=== PATIENT | female | born 1940 | race Caucasian/White ===

== ENCOUNTER → 2022-12-07 10:18 | Outpatient (BNVA) | payer MEDICARE, SELFPAY | PROVIDERS: PCP Internal Medicine; Visit Provider Hospitalist | DX: J84.10 Pulmonary fibrosis, unspecified (principal); R91.8 Other nonspecific abnormal finding of lung field; R06.00 Dyspnea, unspecified; I77.819 Aortic ectasia, unspecified site; K44.9 Diaphragmatic hernia without obstruction or gangrene | CPT/HCPCS: 99202 ==

== ENCOUNTER 2023-04-04 10:35 | Outpatient (AMB) | payer MEDICARE, SELFPAY ==
--- NOTE | 2023-04-04 10:49 | MHC.OFFVIS ---
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 The patient is a lifelong nonsmoker although she was exposed to secondhand smoke as a child. The patient apparently started developing shortness of breath going up a flight of stairs. She was seen by her primary care doctor referred to Cardiology. There she had a cardiac stress test that was abnormal and therefore was referred to Cardiology where she did undergo a cardiac catheterization at [facility]. Her cardiac cath her report was normal and therefore the patient was then referred back to primary care doctor. Patient still complaining of dyspnea on exertion she underwent pulmonary function studies which I personally reviewed demonstrating no evidence of any obstructive nor restrictive ventilatory defects. Her diffusing capacity also within normal limits. Because of a family history of lung cancer and her ongoing symptoms the patient was sent for imaging studies including a CT scan of the chest which I personally reviewed. The patient had some very minimal amount of emphysematous changes in the upper lung zones. In addition to that the patient had an ectatic ascending aorta measuring 4.5 cm. The patient also had small pulmonary nodules which appear to be subsolid in nature primarily in the right larger was 1 measuring 5 mm in size. In addition to that the patient did have some pulmonary fibrotic changes primarily at the bases right more than left. And the subdiaphragmatic level the scarring becomes more round about is hard to know if that is nodule around 8 mm in size. Therefore, have the patient have a repeat CT scan in 6 months from her last ones post to a year. In addition to this the patient did go for 6 minutes walk test and her oxygenation actually dropped to about 90% during the ambulation. Heart rate was stable. 04/04/2023 the patient is here for a pulmonary follow-up visit. Overall the patient has been doing well. She continues to have some dyspnea on exertion but she is trying to stay active. She also has intermittent cough but not too significant. She did follow-up with Cardiology and her medications have been adjusted accordingly. She understands that she needs to continue to exercise to build up her exercise tolerance. The patient did undergo a repeat CT scan of the chest demonstrating stable pulmonary nodules. We will have to reassess the nodules for another year. No need for any additional testing at this time. If the patient develops any worsening symptoms we can always consider a cardiopulmonary exercise tolerance test or further testing to assess for exercise-induced pulmonary hypertension. But at this point I do not believe that this is necessary. FORMERLY [facility], [facility] Medical History (Updated 04/04/23 @ 12:57 by Reed Jamil MD) Pulmonary fibrosis Hiatal hernia Dyspnea Pulmonary nodules Aortic ectasia Social History (Updated 12/07/22 @ 10:35 by LAURA Gamboa) Patient Tobacco Use Status: Never used Tobacco Review of Systems Const Denies headache(s) Eyes Denies blurry vision ENT Denies headache(s) Card Denies chest pain and Reports dyspnea on exertion Resp Reports dyspnea on exertion and Denies wheezing GI Reports no additional complaints Musc Reports no additional complaints Skin/Breast Denies rash Neuro Reports no additional complaints and Denies headache(s) James/Lymph Denies easy bruising Aller/Immun Denies wheezing Physical Exam Vital Signs: Last Vital Signs Pulse 63 04/04/23 10:50 Pulse Ox 96 04/04/23 10:50 Oxygen Delivery Method Room Air 04/04/23 10:50 BMI result Body Mass Index 34.3 Const General: comfortable HEENT Head: Yes normocephalic Neck Neck: Yes supple Chest Chest palpation & inspection: normal inspection of the chest Resp Effort & Inspection: normal respiratory effort Auscultation: diminished lung sounds Cardio Rate: regular rate Rhythm: regular rhythm Heart sounds: S1 normal heart sound present and S2 normal heart sound present GI Palpation (GI): Soft to palpation Skin General skin exam: no rashes or lesions noted Extrem General: Yes no clubbing, cyanosis or edema Assessment & Plan Assessment & Plan (1) Pulmonary nodules: Code(s): R91.8 - Other nonspecific abnormal finding of lung field (2) Dyspnea: Code(s): R06.00 - Dyspnea, unspecified Qualifiers: Dyspnea type: dyspnea on exertion Qualified Code(s): R06.09 - Other forms of dyspnea (3) Hiatal hernia: Code(s): K44.9 - Diaphragmatic hernia without obstruction or gangrene (4) Pulmonary fibrosis: Comment: minimal, does not appear to be progressive Code(s): J84.10 - Pulmonary fibrosis, unspecified Plan Repeat CT chest in 1 year continue exercise regimen F/U in 1 year Orders: Orders CT chest wo IV con 364 Days R91.8 - Other nonspecific abnormal finding of lung field Coding Level of Care Code Est Pt Level 4 (68921) Diagnoses Pulmonary nodules R91.8 Dyspnea on exertion R06.09 Dyspnea type: dyspnea on exertion Hiatal hernia K44.9 Pulmonary fibrosis J84.10 Time Spent (min) 17
[2023-04-04 10:50] VITALS: PULSE 63; O2SAT 96; BMI 34.3
== END 2023-04-04 11:10 | disposition home or self-care (01) ==
PROVIDERS: PCP Internal Medicine; Visit Provider Hospitalist
DX: R91.8 Other nonspecific abnormal finding of lung field (principal); R06.09 Other forms of dyspnea; K44.9 Diaphragmatic hernia without obstruction or gangrene; J84.10 Pulmonary fibrosis, unspecified
CPT/HCPCS: 99214

== ENCOUNTER → 2023-04-04 10:35 | Outpatient (BNVA) | payer MEDICARE, SELFPAY | PROVIDERS: PCP Internal Medicine; Visit Provider Hospitalist | DX: R91.8 Other nonspecific abnormal finding of lung field (principal); R06.09 Other forms of dyspnea; J84.10 Pulmonary fibrosis, unspecified; K44.9 Diaphragmatic hernia without obstruction or gangrene | CPT/HCPCS: 99212 ==

== ENCOUNTER 2023-05-10 09:53 | Outpatient (AMB) | payer MEDICARE, SELFPAY ==
[2023-05-10 10:14] VITALS: BP 124/78; PULSE 61; O2SAT 97
--- NOTE | 2023-05-10 10:14 | MHC.OFFVIS ---
Intake Vital Signs 05/10/23 10:14 Weight 93 kg BP 124/78 Blood Pressure Location Lt brachial Position Sitting Pulse 61 Pulse Source Pulse Oximeter Pulse Oximetry (%) 97 Oxygen Delivery Method Room Air Intake Visit Reasons: 6MW Allergies No Known Allergies Allergy (Verified 05/10/23 10:14) Medication List - Last Reconciled 05/10/23 by Yuko Leslie LPN atenolol 25 mg PO DAILY cholecalciferol (vitamin D3) 25 mcg PO DAILY levothyroxine 0 mcg PO lorazepam 0.5 mg PO DAILY PRN nortriptyline 50 mg PO BEDTIME omeprazole 20 mg PO DAILY simvastatin 20 mg PO DAILY PFSH Medical History (Updated 04/04/23 @ 12:57 by Reed Jamil MD) Pulmonary fibrosis Hiatal hernia Dyspnea Pulmonary nodules Aortic ectasia Social History (Updated 12/07/22 @ 10:35 by LAURA Gamboa) Patient Tobacco Use Status: Never used Tobacco Office Procedures 6 Minute Walk Time:: 10:00 SPO2 % at rest: 97 Pulse at rest: 61 SPO2 % during excercise: 99 Pulse during excercise: 75 SPO2 % after excercise: 97 Pulse after excercise: 74 Distance in yards walked: 240 Hai Score: 2 Performance Observations:: Trinity walked on level ground without assistance, she walked on room air maintaining her SPO2 97-99%, no supplemental O2 needed. [address]481 - 6 Minute Walk Assessment & Plan Assessment & Plan (1) Dyspnea: Code(s): R06.00 - Dyspnea, unspecified Qualifiers: Dyspnea type: dyspnea on exertion Qualified Code(s): R06.09 - Other forms of dyspnea Orders: Orders AMB 6 minute walk Today R06.00 - Dyspnea, unspecified Coding Level of Care Code Established Pt Est Pt Level 1 (43171) Patient Type Established Diagnoses Dyspnea on exertion R06.09 Dyspnea type: dyspnea on exertion CPT Codes Coding ([id number]) Comment NURSE VISIT ONLY
[2023-05-10 10:16] VITALS: PULSE 61; O2SAT 97
== END 2023-05-10 10:11 | disposition home or self-care (01) ==
PROVIDERS: PCP Internal Medicine; Visit Provider Hospitalist
DX: R06.09 Other forms of dyspnea (principal)
CPT/HCPCS: 94618

== ENCOUNTER → 2023-05-10 09:53 | Outpatient (BNVA) | payer MEDICARE, SELFPAY | PROVIDERS: PCP Internal Medicine; Visit Provider Hospitalist | DX: R06.09 Other forms of dyspnea (principal) | CPT/HCPCS: 94618; 99211 ==

== ENCOUNTER 2024-07-17 09:08 | Outpatient (AMB) | payer MEDICARE, SELFPAY ==
[2024-07-17 09:16] VITALS: BP 102/68; PULSE 83; O2SAT 93; BMI 32.6
--- NOTE | 2024-07-17 09:16 | A.OFFVIS_ITS ---
Vital Signs 07/17/24 09:16 Height 5 ft 4.5 in Weight 192 lb 14.472 oz BMI 32.6 BP 102/68 Blood Pressure Location Rt brachial Position Sitting Pulse 83 Pulse Source Pulse Oximeter Pulse Oximetry (%) 93 Oxygen Delivery Method Room Air Intake Visit Reasons: Dyspnea Allergies No Known Allergies Allergy (Verified 07/17/24 09:21) HPI Comments Details: The patient is an 83-year-old woman with an unremarkable past medical history until recently which started been developing worsening dyspnea on exertion. The patient is a lifelong nonsmoker although she was exposed to secondhand smoke as a child. The patient apparently started developing shortness of breath going up a flight of stairs. She was seen by her primary care doctor referred to Cardiology. There she had a cardiac stress test that was abnormal and therefore was referred to Cardiology where she did undergo a cardiac catheterization at [facility]. Her cardiac cath her report was normal and therefore the patient was then referred back to primary care doctor. Patient still complaining of dyspnea on exertion she underwent pulmonary function studies which I personally reviewed demonstrating no evidence of any obstructive nor restrictive ventilatory defects. Her diffusing capacity also within normal limits. Because of a family history of lung cancer and her ongoing symptoms the patient was sent for imaging studies including a CT scan of the chest which I personally reviewed. The patient had some very minimal amount of emphysematous changes in the upper lung zones. In addition to that the patient had an ectatic ascending aorta measuring 4.5 cm. The patient also had small pulmonary nodules which appear to be subsolid in nature primarily in the right larger was 1 measuring 5 mm in size. In addition to that the patient did have some pulmonary fibrotic changes primarily at the bases right more than left. And the subdiaphragmatic level the scarring becomes more round about is hard to know if that is nodule around 8 mm in size. Therefore, have the patient have a repeat CT scan in 6 months from her last ones post to a year. In addition to this the patient did go for 6 minutes walk test and her oxygenation actually dropped to about 90% during the ambulation. Heart rate was stable. 04/04/2023 the patient is here for a pulmonary follow-up visit. Overall the patient has been doing well. She continues to have some dyspnea on exertion but she is trying to stay active. She also has intermittent cough but not too sig nificant. She did follow-up with Cardiology and her medications have been adjusted accordingly. She understands that she needs to continue to exercise to build up her exercise tolerance. The patient did undergo a repeat CT scan of the chest demonstrating stable pulmonary nodules. We will have to reassess the nodules for another year. No need for any additional testing at this time. If the patient develops any worsening symptoms we can always consider a cardiopulmonary exercise tolerance test or further testing to assess for exercise-induced pulmonary hypertension. But at this point I do not believe that this is necessary. 07/17/2024 the patient is here for a pulmonary follow-up visit. Overall she is doing okay. She has had episodes of dizziness. [place] to be related to her low blood pressure. She has been trying to stay more hydrated. She did have a echocardiogram demonstrating a [id number] shunt suggesting a PFO. She did get referred to see about closing it but she was deemed not a candidate for report of the patient. In the meantime she also had a CT scan sometime in 11/20/2023 to assess her it aortic aneurysm. Still measuring 4.5 x 4.5 cm. It was noted her pulmonary nodules were measuring 3 mm and 5 mm in size. Will plan to repeat her CT scan in 11/19/2024 in order to follow-up with the pulmonary nodules and also make sure that her aneurysm has not increased in size after a year. The patient is otherwise without any other complaints. [facility] Medical History (Updated 04/04/23 @ 12:57 by Reed Jamil MD) Pulmonary fibrosis Hiatal hernia Dyspnea Pulmonary nodules Aortic ectasia Social History Patient Tobacco Use Status: Never used Tobacco Review of Systems Const Denies headache(s) Eyes Denies blurry vision ENT Denies headache(s) Card Denies chest pain and Reports dyspnea on exertion Resp Reports dyspnea on exertion and Denies wheezing GI Reports no additional complaints Musc Reports no additional complaints Skin/Breast Denies rash Neuro Reports no additional complaints and Denies headache(s) James/Lymph Denies easy bruising Aller/Immun Denies wheezing Physical Exam Vital Signs: Last Vital Signs Pulse 83 07/17/24 09:16 BP 102/68 07/17/24 09:16 Pulse Ox 93 07/17/24 09:16 Oxygen Delivery Method Room Air 07/17/24 09:16 BMI result Body Mass Index 32.6 Const General: comfortable HEENT Head: Yes normocephalic Neck Neck: Yes supple Chest Chest palpation & inspection: normal inspection of the chest Resp Effort & Inspection: normal respiratory effort Auscultation: diminished lung sounds Cardio Rate: regular rate Rhythm: regular rhythm Heart sounds: S1 normal heart sound present and S2 normal heart sound present GI Palpation (GI): Soft to palpation Skin General skin exam: no rashes or lesions noted Extrem General: Yes no clubbing, cyanosis or edema Assessment & Plan Assessment & Plan (1) Pulmonary nodules: Code(s): R91.8 - Other nonspecific abnormal finding of lung field Category: Medical (2) Dyspnea: Code(s): R06.00 - Dyspnea, unspecified Category: Medical Qualifiers: Dyspnea type: dyspnea on exertion Qualified Code(s): R06.09 - Other forms of dyspnea (3) Hiatal hernia: Code(s): K44.9 - Diaphragmatic hernia without obstruction or gangrene Category: Medical (4) Pulmonary fibrosis: Comment: minimal, does not appear to be progressive Code(s): J84.10 - Pulmonary fibrosis, unspecified Category: Medical Plan Repeat CT chest in October 2024 at [facility] continue exercise regimen reflux diet F/U in 6 months Orders: Orders CT chest wo IV con 11/11/24 R91.8 - Other nonspecific abnormal finding of lung field Coding Level of Care Code Est Pt Level 4 (78573) Diagnoses Pulmonary nodules R91.8 Dyspnea on exertion R06.09 Dyspnea type: dyspnea on exertion Hiatal hernia K44.9 Pulmonary fibrosis J84.10 Time Spent (min) 17
== END 2024-07-17 09:45 | disposition home or self-care (01) ==
PROVIDERS: PCP Internal Medicine; Visit Provider Hospitalist
DX: R91.8 Other nonspecific abnormal finding of lung field (principal); R06.09 Other forms of dyspnea; K44.9 Diaphragmatic hernia without obstruction or gangrene; J84.10 Pulmonary fibrosis, unspecified
CPT/HCPCS: 99214

== ENCOUNTER → 2024-07-17 09:08 | Outpatient (BNVA) | payer MEDICARE, SELFPAY | PROVIDERS: PCP Internal Medicine; Visit Provider Hospitalist | DX: R91.8 Other nonspecific abnormal finding of lung field (principal); R06.09 Other forms of dyspnea; K44.9 Diaphragmatic hernia without obstruction or gangrene; J84.10 Pulmonary fibrosis, unspecified | CPT/HCPCS: 99212 ==

== ENCOUNTER 2025-01-21 09:01 | Outpatient (AMB) | payer MEDICARE, SELFPAY ==
[2025-01-21 09:19] VITALS: BP 104/72; PULSE 69; O2SAT 97; BMI 30.7
--- NOTE | 2025-01-21 09:19 | MHC.OFFVIS ---
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 The patient is a lifelong nonsmoker although she was exposed to secondhand smoke as a child. The patient apparently started developing shortness of breath going up a flight of stairs. She was seen by her primary care doctor referred to Cardiology. There she had a cardiac stress test that was abnormal and therefore was referred to Cardiology where she did undergo a cardiac catheterization at [facility]. Her cardiac cath her report was normal and therefore the patient was then referred back to primary care doctor. Patient still complaining of dyspnea on exertion she underwent pulmonary function studies which I personally reviewed demonstrating no evidence of any obstructive nor restrictive ventilatory defects. Her diffusing capacity also within normal limits. Because of a family history of lung cancer and her ongoing symptoms the patient was sent for imaging studies including a CT scan of the chest which I personally reviewed. The patient had some very minimal amount of emphysematous changes in the upper lung zones. In addition to that the patient had an ectatic ascending aorta measuring 4.5 cm. The patient also had small pulmonary nodules which appear to be subsolid in nature primarily in the right larger was 1 measuring 5 mm in size. In addition to that the patient did have some pulmonary fibrotic changes primarily at the bases right more than left. And the subdiaphragmatic level the scarring becomes more round about is hard to know if that is nodule around 8 mm in size. Therefore, have the patient have a repeat CT scan in 6 months from her last ones post to a year. In addition to this the patient did go for 6 minutes walk test and her oxygenation actually dropped to about 90% during the ambulation. Heart rate was stable. 04/04/2023 the patient is here for a pulmonary follow-up visit. Overall the patient has been doing well. She continues to have some dyspnea on exertion but she is trying to stay active. She also has intermittent cough but not too significant. She did follow-up with Cardiology and her medications have been adjusted accordingly. She understands that she needs to continue to exercise to build up her exercise tolerance. The patient did undergo a repeat CT scan of the chest demonstrating stable pulmonary nodules. We will have to reassess the nodules for another year. No need for any additional testing at this time. If the patient develops any worsening symptoms we can always consider a cardiopulmonary exercise tolerance test or further testing to assess for exercise-induced pulmonary hypertension. But at this point I do not believe that this is necessary. 07/17/2024 the patient is here for a pulmonary follow-up visit. Overall she is doing okay. She has had episodes of dizziness. [place] to be related to her low blood pressure. She has been trying to stay more hydrated. She did have a echocardiogram demonstrating a [id number] shunt suggesting a PFO. She did get referred to see about closing it but she was deemed not a candidate for report of the patient. In the meantime she also had a CT scan sometime in 11/20/2023 to assess her it aortic aneurysm. Still measuring 4.5 x 4.5 cm. It was noted her pulmonary nodules were measuring 3 mm and 5 mm in size. Will plan to repeat her CT scan in 11/19/2024 in order to follow-up with the pulmonary nodules and also make sure that her aneurysm has not increased in size after a year. The patient is otherwise without any other complaints. 01/21/2025 the patient is here for a pulmonary follow-up visit. Overall she is doing well from a respiratory status. Denies any significant shortness of breath or cough or any chest discomfort. She follows closely with Cardiology. Overall she has been reassured that everything is well from a cardiac standpoint. We did review her CT scan that she had back in October 2024 at [facility]. Personally by me. Her ascending aorta appears to be dilated measuring 4.5 cm which is the same as before. In addition to that the patient does have a 5 mm pulmonary nodule along with other subcentimeter pulmonary nodules unchanged from last year. The patient also has some areas of atelectasis. Will go ahead and plan to repeat 1 more CAT scan in a year's time. If no significant changes then then the patient will not require any additional serial CAT scans at least for the pulmonary nodules in the atelectasis. [facility] Medical History (Updated 04/04/23 @ 12:57 by Reed Jamil MD) Pulmonary fibrosis Hiatal hernia Dyspnea Pulmonary nodules Aortic ectasia Social History Patient Tobacco Use Status: Never used Tobacco Review of Systems Const Denies headache(s) Eyes Denies blurry vision ENT Denies headache(s) Card Denies chest pain and Reports dyspnea on exertion Resp Reports dyspnea on exertion and Denies wheezing GI Reports no additional complaints Musc Reports no additional complaints Skin/Breast Denies rash Neuro Reports no additional complaints and Denies headache(s) James/Lymph Denies easy bruising Aller/Immun Denies wheezing Physical Exam Vital Signs: Last Vital Signs Pulse 69 01/21/25 09:19 BP 104/72 01/21/25 09:19 Pulse Ox 97 01/21/25 09:19 Oxygen Delivery Method Room Air 01/21/25 09:19 BMI result Body Mass Index 30.7 Const General: comfortable HEENT Head: Yes normocephalic Neck Neck: Yes supple Chest Chest palpation & inspection: normal inspection of the chest Resp Effort & Inspection: normal respiratory effort Auscultation: diminished lung sounds Cardio Rate: regular rate Rhythm: regular rhythm Heart sounds: S1 normal heart sound present and S2 normal heart sound present GI Palpation (GI): Soft to palpation Skin General skin exam: no rashes or lesions noted Extrem General: Yes no clubbing, cyanosis or edema Assessment & Plan Assessment & Plan (1) Pulmonary nodules: Code(s): R91.8 - Other nonspecific abnormal finding of lung field Category: Medical (2) Dyspnea: Code(s): R06.00 - Dyspnea, unspecified Category: Medical Qualifiers: Dyspnea type: dyspnea on exertion Qualified Code(s): R06.09 - Other forms of dyspnea (3) Hiatal hernia: Code(s): K44.9 - Diaphragmatic hernia without obstruction or gangrene Category: Medical (4) Pulmonary fibrosis: Comment: minimal, does not appear to be progressive Code(s): J84.10 - Pulmonary fibrosis, unspecified Category: Medical Plan Repeat CT chest in December 2025 at [facility] continue exercise regimen reflux diet F/U in 12 months Orders: Orders CT chest wo IV con 11 Months R91.8 - Other nonspecific abnormal finding of lung field Coding Level of Care Code Est Pt Level 4 (12198) Diagnoses Pulmonary nodules R91.8 Dyspnea on exertion R06.09 Dyspnea type: dyspnea on exertion Hiatal hernia K44.9 Pulmonary fibrosis J84.10 Time Spent (min) 16
== END 2025-01-21 09:48 | disposition home or self-care (01) ==
LOC: HO.HPS 09:02
PROVIDERS: PCP Internal Medicine; Visit Provider Hospitalist
DX: R91.8 Other nonspecific abnormal finding of lung field (principal); R06.09 Other forms of dyspnea; K44.9 Diaphragmatic hernia without obstruction or gangrene; J84.10 Pulmonary fibrosis, unspecified
CPT/HCPCS: 99214

== ENCOUNTER → 2025-01-21 09:01 | Outpatient (BNVA) | payer MEDICARE, SELFPAY | PROVIDERS: PCP Internal Medicine; Visit Provider Hospitalist | DX: R91.8 Other nonspecific abnormal finding of lung field (principal); R06.09 Other forms of dyspnea; K44.9 Diaphragmatic hernia without obstruction or gangrene; J84.10 Pulmonary fibrosis, unspecified | CPT/HCPCS: 99212 ==